=== PATIENT | female | born 1990 | race Caucasian/White ===

== ENCOUNTER 2019-09-27 12:50 | Emergency (ER) | payer BC ==
[~2019-09-27] VITALS: Ht 165.1 cm; Wt 82.8 kg
[2019-09-27] MEDS ORDERED: ADDE30TA PO (13:07)
[2019-09-27] MEDS ORDERED: MULTCAP PO (13:07)
[2019-09-27] MEDS ORDERED: CIPR-249 PO (14:51)
[2019-09-27 14:56] VITALS: BP 123/79
== END 2019-09-27 14:57 | disposition home or self-care (01) ==
LOC: M ED 12:50
DX: N30.90 Cystitis, unspecified without hematuria (principal); F90.9 Attention-deficit hyperactivity disorder, unspecified type; Z79.899 Other long term (current) drug therapy